=== PATIENT | male | born 1985 | race Caucasian/White ===

== ENCOUNTER 2021-04-26 07:04 | Emergency (ER) | payer OTHER, SELFPAY ==
[2021-04-26 07:06] VITALS: BP 136/63; PULSE 51; RESP 16; TEMP 36; O2SAT 98; BMI 25.6
--- NOTE | 2021-04-26 07:32 | RAD_ITS ---
STUDY: X-RAY - CERVICAL SPINE REASON FOR EXAM: Male, 36 years old. Paresthesias TECHNIQUE: 7 view(s) of the cervical spine were obtained. COMPARISON: None FINDINGS: Normal anterior atlantoaxial articulation. Normal odontoid process. There is straightening of the normal cervical lordosis. No subluxation on the flexion or extension views to suggest instability. Normal vertebral bodies and endplates. Focal disc space narrowing and osteophyte formation at C5/C6 consistent with degenerative disc disease. Normal visualized intervertebral neuroforamina. The soft tissue structures are unremarkable. RAD/Cerv Spine Obl/Flex/Ext Comp IMPRESSION: Focal degenerative disc disease at C5/C6 with straightening of the normal lordotic curvature. No instability. Electronically Signed: Perez Talbert MD at 7:59 EDT Tel , Service support ,
--- NOTE | 2021-04-26 07:35 | EDS_ITS ---
HPI History of Present Illness Chief Complaint: Numb/Ting Informant: patient Onset/Context/Timing Onset: Weeks (2) Context: Gradual Onset Timing: Continuous Quality: Sharp Location: Left arm Worsened by: Certain positions Relieved by: Massage and certain positions Narrative Narrative: Patient presents with left arm pain, and left thumb tingling that has been getting worse over the past 2 weeks. Patient denies any trauma or injury. Patient states the pain starts in the scapular area and radiates down the posterior aspect of his left upper arm. Patient states it is worse with certain positions. Patient states he saw a chiropractor who examined him. He recommend ed that the patient undergo massage therapy. Patient states he did this with some relief. Patient states the pain is worse with certain positions and is better in other positions. Patient states the tingling sensation is over the left thumb and index finger and goes up to the radial aspect of the forearm. Patient denies any neck pain. PFSH PFSH no medical history Home Medications naproxen 500 mg PO BID PRN #20 tab 04/26/21 [Rx Last Taken Unknown] Allergy/AdvReac Type Severity Reaction Status Date / Time No Known Allergies Allergy Verified 04/26/21 07:06 no surgical history Social History Smoking Status: Never smoker ROS ROS ED Constitutional Constitutional ED: Denies chills or fever(s) Eyes Eyes: Denies blurry vision or change in vision ENT ENT ED: Denies rhinorrhea or sore throat Cardiovascular Cardiovascular: Denies chest pain or palpitations Respiratory/Chest Respiratory/Chest: Denies cough or dyspnea Gastrointestinal Gastrointestinal: Denies nausea or vomiting Genitourinary Genitourinary ED: Denies dysuria or hematuria Musculoskeletal Musculoskeletal: Reports back pain and neck pain Integumentary Denies abscess or rash Neurologic Neurologic: Reports paresthesias LUE; Denies headache(s) Allergic/Immunologic Allergic/Immunologic ED: Denies mouth swelling or urticaria EXAM Physical Exam Const Vital Signs: 04/26/21 07:06 Temperature 96.8 F L Temperature Source Temporal Pulse Rate 51 L Respiratory Rate 16 Blood Pressure 136/63 H Blood Pressure Mean 87 Pulse Ox 98 Oxygen Delivery Method Room Air Positive well nourished and well developed General Appearance ED: well developed HEENT Reports moist mucous membranes Resp normal respiratory effort and clear to auscultation bilaterally Cardio regular rate and regular rhythm GI normal to inspection, nondistended, normoactive bowel sounds and non-tender Palpation: soft Extremity Extremity Narrative: There is some mild tenderness along the left lateral border of the scapula. There is some mild muscle spasm over this area. There is no cervical spine tenderness. There is no bony crepitance or step-off. There is good range of motion of the left upper extremity. There is no pain or paresthesias with abduction and external rotation of the left shoulder. There is no change in radial pulse with this maneuver. Neuro oriented x3 and CN's II-XII intact bilaterally Sensorium / Orientation: alert Sensory Exam: sensory level loss detected Location: C6 (There is some tingling over the C6 dermatome.) Motor Exam: strength 5/5 throughout Psych mental status grossly normal MDM MDM MDM Narrative Medical decision making narrative: Patient was given a dose of Naprosyn here. Cervical spine x-rays were obtained. There are 9 views. On my interpretation, there is some degenerative changes at the C5/C6 level. There is no foraminal stenosis noted. There is no acute fracture. Radiologist also interpreted the x-rays and agrees. Patient was given a prescription for Naprosyn. Patient was instructed to use ice to the area. Patient was instructed to follow-up with his primary care physician in 5 to 7 days. Patient understood and was agreeable with the plan. All questions were answered. Radiography Diagnostic Testing: Radiology Impression Spine Flexion/Extension X-Ray 04/26/21 07:32 IMPRESSION: Focal degenerative disc disease at C5/C6 with straightening of the normal lordotic curvature. No instability. Electronically Signed: Perez Talbert MD at 7:59 EDT Tel , Service support , Discharge Plan Triage Chief Complaint: Numb/Ting ED Provider: Christos Sandoval Dx/Rx/DC Orders Clinical Impression: Left hand paresthesia Instructions: ED Neuropathy, Peripheral Prescriptions: New naproxen 500 MG tablet 500 mg PO BID PRN Qty: 20 RF: 0 Primary Care Provider: Ronnie Roldan Referrals: Ronnie Roldan MD [Primary Care Provider] - 3-5 Days
[2021-04-26] MEDS: Naproxen 500 MG Tablet PO (08:02)
== END 2021-04-26 08:40 | disposition home or self-care (01) ==
PROVIDERS: Emergency Provider Emergency Medicine; PCP Family Medicine
DX: R20.2 Paresthesia of skin (principal); M50.322 Other cervical disc degeneration at C5-C6 level
CPT/HCPCS: 72052; 99283

== ENCOUNTER → 2022-10-27 | Outpatient (CLI) | payer OTHER, SELFPAY ==
--- NOTE | 2022-10-27 14:30 | LIP_PTH ---
PATIENT: JOHNSON TRENT LOC: [facility] U#:[id number] AGE/SX: 37/M ROOM: RE10/27/[address]: Dr. Billy Webster MD : 1985 BED: DIS: 10/27/2022 SPEC #: [id number] RECD: 10/27/22 16:09 STATUS: MARCELINO SEMAJ #: [id number] ED: 10/27/22 14:[address]: Billy Webster DEPT: SURGICAL PATHOLOGY RECD BY: Shasta Franco Tissues: Soft tissues, NOS Procedures: Surgery Specimen Level III HEADER OPERATION: Excision of lipoma on back PRE-OP DIAGNOSIS: Lipoma back TISSUE SUBMITTED: Back tissue MICROSCOPIC DIAGNOSIS Soft tissue lesion of back, excision: Mature adipose tissue consistent with lipoma. AM:symone 10/29/2022 MICROSCOPIC DESCRIPTION Slides are reviewed. GROSS DESCRIPTION Received in fixative is one container labeled with the patient's name and designated back lipoma. The specimen consists of a lobular fragment of yellow-pink fatty tissue measuring 5.7 x 4 x 2.2 cm. Serial sections reveal homogenous yellow cut surfaces without cyst formation, hemorrhage or myxoid change. Wood Bucker sections are submitted in one cassette. / AM:symone 10/28/2022 TC:1 CPT: 49592
== END | disposition home or self-care (01) ==
LOC: LABSPEC 16:17
PROVIDERS: Visit Provider Surgery
DX: L98.9 Disorder of the skin and subcutaneous tissue, unspecified (principal)
CPT/HCPCS: 88304